=== PATIENT | female | born 1970 | race Caucasian/White ===

== ENCOUNTER 2017-06-04 23:45 | Emergency (ER) | payer OTHER ==
--- NOTE | 2017-06-04 23:48 | PDOC ---
History of Present Illness - General Stated Complaint: URINARY COMPLAINTS Time Seen by Provider: 06/04/17 23:47 History Source: Patient Exam Limitations: No Limitations - History of Present Illness Initial Comments: 06/04/17 23:58 This is a 47-year-old female who has history of renal colic in the past 2 comes in complaining of acute onset of right flank pain. Patient went to a urgent care center earlier in the day and was told she might have a urinary tract infection but they didn't give her any antibiotics for it. Patient now comes in complaining of worse pain. Patient denies any associated nausea. Patient denies any fevers or chills. Patient denies any frequency or dysuria. Patient said that there is blood in her urine. Patient said her last kidney stone was on the other side and required lithotripsy. PAST MEDICAL HISTORY: Kidney stone, irritable syndrome. PAST SURGICAL HISTORY: no significant history FAMILY HISTORY: no pertinant history SOCIAL HISTORY: Pt lives with family and is employed. MEDICATIONS: reviewed ALLERGIES: As per nursing notes Review of Systems General: No fevers or chills, no weakness, no weight loss HEENT: No change in vision. No sore throat,. No ear pain CardioVascular: No chest pain or shortness of breath Respiratory:No cough, or wheezing. Gastrointestinal: no nausea, vomitting, diarrhea or constipation, No rectal bleeding Genitourinary: No dysuria, hematuria, or frequency Musculoskeletal: No joint or muscle pain or swelling Neurologic: No headache, vertigo, dizziness or loss of consciousness Psychiatric: nor depression Skin: No rashes or easy bruising Endocrine: no increased thirst or abnormal weight change Allergic: no skin or latex allergy All other systems reviewed and normal Exam: General: Well-nourished well-developed individual, no acute distress HEENT: Throat: Normal, tonsils normal, no erythema or exudate Neck: Supple, no meningeal signs, no lymphadenopathy Eyes::Pupils equal reactive and round, extraocular motion intact Abdomen: Soft, nondistended, normal bowel sounds, nontender to palpation diffusely Back/Flank: There is right tenderness on palpation of the right flank. There is some mild tenderness on the right CVA area. Extremities: Warm, dry, no cyanosis, clubbing, or edema Skin: No rashes Neuro: Alert and oriented x3, nonfocal exam, grossly intact, normal gait Psych: Normal mood and affect Assessment and plan: This is a 47-year-old female who comes in complaining of right flank pain. Patient's symptoms completely resolved in the emergency room. Patient had a workup for renal colic as she had a history of renal colic in the past. 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 I looked at the patient's CAT scan and did not see any hydroureter ureter, hydronephrosis or perinephric stranding. I was unable to visualize any calculi. I will discharge a should based upon my reading and told patient that she should call in the morning to get a report of her CAT scan and to follow-up with her urologist. Patient was discharged home with prescriptions for Zofran and Flomax. Patient had Percocet at home. Past History - Past Medical History Allergies/Adverse Reactions: Allergies Allergy/AdvReac Type Severity Reaction Status Date / Time ciprofloxacin [From Cipro] Allergy Verified 06/04/17 23:58 ciprofloxacin HCl Allergy Verified 06/04/17 23:58 [From Cipro] levofloxacin [From Levaquin] Allergy Verified 06/04/17 23:56 Penicillins Allergy Verified 06/04/17 23:58 nitrofurantoin AdvReac Verified 06/04/17 23:58 [From Macrobid] nitrofurantoin AdvReac Verified 06/04/17 23:58 macrocrystalline [From Macrobid] Home Medications: Ambulatory Orders Calcium Polycarbophil [Konsyl Fiber] 625 mg PO DAILY 06/05/17 Multivits,Ca,Minerals/Iron/FA [Women's Daily Formula Caplet] 1 each PO DAILY Paul-3 Fatty Acids/Fish Oil [Fish Oil 1,000 mg Softgel] 2 each PO DAILY Ondansetron [Zofran Odt -] 4 mg SL BID #14 od.tablet 06/05/17 Oxycodone HCl/Acetaminophen [Percocet 5-325 mg Tablet] 1 tab PO Q4H 06/05/17 Tamsulosin HCl [Flomax] 0.4 mg PO DAILY #30 cap.er.24h 06/05/17 ED Treatment Course - LABORATORY CBC & Chemistry Diagram: 06/05/17 00:05 06/05/17 00:05 *DC/Admit/Observation/Transfer Diagnosis at time of Disposition: Acute right flank pain - Discharge Dispostion Disposition: HOME Condition at time of disposition: Stable Admit: No - Prescriptions Prescriptions: Tamsulosin HCl [Flomax] 0.4 mg PO DAILY #30 cap.er.24h Ondansetron [Zofran Odt -] 4 mg SL BID #14 od.tablet - Patient Instructions Additional Instructions: For the pain you can take Percocet as often as every 4-6 hours 1-2 tablets. If you have any nausea take Zofran 1 tablet as often as every 8-12 hours. Take Flomax 1 a day to help keep the urine flowing. Call in the morning for the result of your CAT scan report as we were unable to get the result tonight however I looked at the CAT scan and it does look there like there is a small kidney stone at about the area of your pelvic brim. However I am not qualified to interpret CAT scans so it is important that you call in the morning for the official report. If the official report does also show a kidney stone follow-up with your urologist Return to the emergency department immediately with ANY new, persistent or worsening symptoms. Continue any medications as previously prescribed by your physician. You should follow up with your primary doctor as soon as possible regarding today's emergency department visit. . Please make sure your doctor reviews the results of your emergency evaluation. Thank you for coming to the Emergency Department today for your care. It was a pleasure to see you today. Please note that your evaluation is INCOMPLETE until you follow-up with your doctor. - Post Discharge Activity Work/School Note: Back to Work
[2017-06-04 23:54] LABS: URINE APPEARANCE Clear; URINE BILIRUBIN Negative (NEGATIVE); URINE GLUCOSE (UA) Negative (NEGATIVE); URINE KETONE Negative (NEGATIVE); URINE NITRITE Negative (NEGATIVE); URINE PROTEIN Negative (NEGATIVE); URINE UROBILINOGEN 0.2 (0.2-1.0)
[2017-06-04 23:55] LABS: URINE BLOOD Trace-intact (NEGATIVE); URINE COLOR YELLOW; URINE LEUK ESTERASE TRACE (NEGATIVE)
[2017-06-04 23:59] LABS: URINE BACTERIA FEW /hpf (NEGATIVE); URINE WBC 0-2 (3-5)
[2017-06-05] MEDS ORDERED: SODIUM CHLORIDE 1,000 ML IV ONE (00:04)
[2017-06-05] MEDS ORDERED: ONDANSETRON 4 MG/2 ML VIAL IVPB ONE (00:04)
[2017-06-05] MEDS ORDERED: KETOROLAC TROMETHAMINE 30 MG/1 ML VIAL IVPUSH ONE (00:04)
[2017-06-05] MEDS ORDERED: morphine CARPU-JECT 4 MG/1 ML DISP.SYRIN ONE (00:06)
[2017-06-05] MEDS ORDERED: KETOROLAC TROMETHAMINE 30 MG/1 ML VIAL ONE (00:06)
[2017-06-05] MEDS ORDERED: morphine CARPU-JECT 4 MG/1 ML DISP.SYRIN IVPUSH ONE (00:06)
[2017-06-05] MEDS ORDERED: ONDANSETRON 4 MG/2 ML VIAL ONE (00:06)
[2017-06-05 00:24] VITALS: BP 120/73; PULSE 60; TEMP 98.5; BMI 27.3
[2017-06-05 00:58] LABS: BASOPHIL 0.6 % (0-2.0); MCHC 34.1 g/dl (32.0-36.0); MEAN CELL VOLUME 96.7 fl (80-96); MEAN PLT VOLUME 9.5 fl (7.5-11.1); NEUTROPHILS 36.2 % (42.8-82.8); PLATELET COUNT 190 K/MM3 (134-434); RDW 13.3 % (11.6-15.6); WHITE BLOOD COUNT 6.5 K/mm3 (4.0-10.0)
[2017-06-05 01:20] LABS: ALBUMIN 3.8 g/dl (3.4-5.0); ANION GAP 6 (8-16); BILIRUBIN,TOTAL 0.2 mg/dL (0.2-1.0); CO2 32 mmol/L (21-32); CREATININE 0.8 mg/dL (0.55-1.02); GLUCOSE,RANDOM 96 mg/dL (74-106); SGOT/AST 24 U/L (15-37); SGPT/ALT 32 U/L (12-78); TOT PROT 6.9 g/dl (6.4-8.2)
[2017-06-05 01:21] LABS: ALK PHOS 50 U/L (45-117)
== END 2017-06-05 02:31 | disposition home or self-care (01) ==
LOC: FER 23:45
PROC: 3E0333Z Introduction of Anti-inflammatory into Peripheral Vein, Percutaneous Approach (ICD-10-PCS; principal; 2017-06-04)
PROC: 3E033NZ Introduction of Analgesics, Hypnotics, Sedatives into Peripheral Vein, Percutaneous Approach (ICD-10-PCS; 2017-06-04)
PROC: 3E033GC Introduction of Other Therapeutic Substance into Peripheral Vein, Percutaneous Approach (ICD-10-PCS; 2017-06-04)
PROC: 3E0337Z Introduction of Electrolytic and Water Balance Substance into Peripheral Vein, Percutaneous Approach (ICD-10-PCS; 2017-06-04)
DX: R10.31 Right lower quadrant pain (principal)
CPT/HCPCS: 36415; 74176-TC; 80053; 81003; 81015; 84703; 85025; 87086; 99282-25